=== PATIENT | male | born 1950 | race Caucasian/White ===

== ENCOUNTER 2024-05-30 21:28 | Inpatient (IN) | payer MEDICARE, OTHER, SELFPAY ==
[2024-05-30] VITALS (10 sets, daily range): BP systolic 77–137; BP diastolic 56–75; BMI 21.4
--- NOTE | 2024-05-30 15:21 | ED.GENMED ---
History of Present Illness
<Lacie Parks PA-C - Last Filed: 06/02/24 10:07>
General
Chief Complaint: Abdominal Pain
Source: patient
Exam Limitations: none
Time Seen by Provider: 05/30/24 15:21
Nursing documentation reviewed up to this point in time: agreed with
History of Present Illness
History of Present Illness:
73-year-old male with a past medical history of abdominal aortic aneurysm, A-fib, CHF, presents emergency department today with concerns of abdominal pain for the past 3 days and hypoxia. Patient comes from [facility]. I called [facility]
and they state the patient started complaining that 'I am not feeling well 'starting yesterday. They went to go check on him and noted that his pulse ox was 90% on room air, he was started on 2 L. He has no history of hypoxia or supplemental
oxygen prior. He started having a cough that was dry, they did a chest x-ray which was negative and had covid and flu testing which was negative. Today, he started complaining of lower abdominal pain and burning with urination. He has no nausea
or vomiting. He did note a fever today at the facility. He has no chest pain. He has not had any episodes of hemoptysis or syncope. He does have a known abdominal aneurysm, which is being followed.
Past History
<Lacie Parks PA-C - Last Filed: 06/02/24 10:07>
Past History
ED Past Medical History: Arrthythmia (A. fib), CAD, CHF, Hypercholesterolemia and Other (Upper extremity contractures, BPH, rheumatoid arthritis)
ED Past Surgical History: Cardiac (pacemaker)
Social History
Alcohol: None
Review of Systems
<Lacie Parks PA-C - Last Filed: 06/02/24 10:07>
Review of Systems
All Other Systems: ROS reviewed and negative except as documented in HPI and ROS
Phy Exam
<Lacie Parks PA-C - Last Filed: 06/02/24 10:07>
Physical Exam
Physical Exam:
General: Patient is well appearing and in no acute distress; non-toxic
Skin: Warm and dry, no rashes or lesions
Head: Normocephalic, atraumatic
Eyes: Sclera non-icteric. EOMs intact.
Cardiac: Regular rate and rhythm, no murmurs
Peripheral Vascular: No lower extremity swelling or edema
Pulm: Normal respiratory effort, lungs clear to auscultation bilaterally
Abdomen: Lower abdominal tenderness palpation noted with guarding
Neuro: CN II-XII intact, no focal neurologic deficits.
Psychiatric: Appropriate mood and affect.
Course
<Lacie Parks PA-C - Last Filed: 06/02/24 10:07>
Orders/Labs/Results
Orders:
Orders
05/30/24 Breakfast
Regular
At Your Request: Limited Participation
Does patient need a safe tray?: No
05/30/24 15:58
Acetaminophen [Tylenol] 1,000 mg PO NOW STA
05/30/24 16:05
Complete Blood Count/With Diff Urgent
Comprehensive Metabolic Panel Urgent
Lipase Urgent
05/30/24 16:11
CT Pe/abd/pel W Urgent
Reason For Exam: hypoxia
05/30/24 19:47
Straight Cath As Directed
Frequency: One time now
05/30/24 19:50
COVID-19 Antigen Urgent
Source: Nasal Swab
Lactic Acid Q4H
Comment: CANCEL 2nd LACTIC ACID IF 1st LACTIC ACID IS LESS THAN 2
Urine Culture Reflexed from UA [Urinalysis Reflex To Culture] Urgent
Date Specimen was Collected: 05/30/24
Time Specimen was Collected: 19:47
Influenza A+B Rapid Molecular Urgent
ROSANNE Source: Nasal Swab
Specimen Description:
05/30/24 19:58
Dexamethasone Sod Phosphate [Decadron] 10 mg IV NOW STA
Ipratropium/Albuterol Sulfate [Duoneb] 3 ml INH R NOW STA
05/30/24 20:35
Admit/Transfer Patient As Directed
Co-Sign Provider:
Level of Care: Inpatient admission
Assign to:: Telemetry
Physician / Group: Duane
Diagnosis: Cough, Hypoxemia
Reason for Telemetry: Arrhythmia
Date to Stop Telemetry: 06/02/24
Time to Stop Telemetry: 11:00
Reason for Hospitalization: Cough, Hypoxemia
Expected length of stay greater than two midnights?: Yes
ELOS- Estimated Length of Stay in days: 2
I certify the patient meets the requirements for IP care: Yes
05/30/24 20:36
PRN Pain Medication Management As Directed
May give lesser potent ordered pain med per pt: Yes
preference::
Protocol:: Medication orders for pain may be administered in a
manner that supports deferring to patient preference
when the pt is:
- Requesting an ordered lesser potent pain medication.
Least to most potent pain medications are defined
as: acetaminophen < NSAID < tramadol < opioids
(morphine, oxycodone, hydromorphone).
- Requesting a lesser dose of the same medication IF
ORDERED.
- Requesting a less intrusive route of administration
if both routes are prescribed by the provider (PO <
IV).
05/30/24 20:43
Code Status As Directed
Resuscitation Status: Full Code
05/30/24 22:26
0.9% Sodium Chloride 1000 ml [Nss] 1,000 ml IV 80 mls/hr
Acetaminophen [Tylenol] 650 mg PO Q4HPRN PRN
Albuterol [ProAIR HFA INHALER] 2 puff INH R Q4HPRN PRN
Benzonatate [Tessalon Perles] 200 mg PO TIDPRN PRN
HYDROmorphone [Dilaudid] 0.5 mg IV Q4HPRN PRN
Mirtazapine [Remeron] 7.5 mg PO HS
Ondansetron Injectable [Zofran] 4 mg IV Q6HPRN PRN
Polyethylene Glycol Powder [Miralax] 17 grams PO HS
Tamsulosin [Flomax] 0.4 mg PO HS
05/30/24 22:26
Activity As Directed
Activity Level: Out of Bed- Chair
With Assistance
Bladder Scan As Directed
Follow Bladder Retention/Intermittent Cath Algorithm?: Yes
PRN if no void in __ hours: 6
Frequency: Per Retention Algorithm
If Bladder Scan Result >: 400
then:: Straight cath
EKG with chest pain [ECG as needed] As Directed
ECG as needed for:: Chest Pain
I/O [Intake/ Output] As Directed
Frequency: Per unit guidelines
Precautions As Directed
Type of Precautions: Droplet
Straight Cath As Directed
Frequency: Per Retention Algorithm
Additional Instructions: straight cath as needed per acute urinary retention algorithm for 24 hrs
Additional Instructions: for bladder scan greater than 400 mL
Vital Signs As Directed
Frequency: Per unit guidelines
Weight As Directed
Frequency: Daily
Oxygen Therapy [O2 Therapy] [RESP] Routine
Titrate/Wean O2 to maintain O2 sat greater than (%): 94
Ot Eval And Treat Routine
PT Consult [Pt Eval And Treat] Routine
Activity Level: Ambulate
With Assistance
DX Deep Vein Thrombosis Video Routine
05/31/24 00:00
Ketorolac [Acuvail] 1 drops LEFT EYE Q6H
05/31/24 06:42
Basic Metabolic Panel IN AM
Complete Blood Count/No Diff IN AM
05/31/24 08:00
Albuterol [ProAIR HFA INHALER] 2 puff INH R QID
Aspirin Low Dose EC [Aspir Low (Enteric Coated)] 81 mg PO DAILY
Carbamazepine Chewable [Tegretol Chewable] 100 mg PO BID
Carvedilol [Coreg] 6.25 mg PO BID
Clopidogrel Bisulfate [Plavix] 75 mg PO DAILY
Duloxetine Delayed Release [Cymbalta Delayed Release] 30 mg PO DAILY
Duloxetine Delayed Release [Cymbalta Delayed Release] 60 mg PO DAILY
Ferrous Sulfate [Feosol] 325 mg PO DAILY
Hydroxychloroquine [Plaquenil] 400 mg PO DAILY
Oseltamivir Phosphate [Tamiflu] 75 mg PO BID
Pantoprazole [Protonix] 40 mg PO DAILY
Sennosides [Senokot] 8.6 mg PO BID
05/31/24 18:00
Atorvastatin [Lipitor] 40 mg PO QPM
Enoxaparin Sodium [Lovenox] 40 mg SC QPM
06/02/24 11:00
DC Protocol for Telemetry ONCE
Abnormal Lab Results
05/30/24 05/30/24
16:05 19:50
RBC 3.96 L 10^6/uL
(4.70-6.10)
Hgb 9.6 L g/dL
(13.0-18.0)
Hct 32.6 L %
(39.0-52.0)
MCH 24.2 L pg
(27.0-31.0)
MCHC 29.4 L g/dL
(33.0-37.0)
RDW 21.8 H %
(11.5-14.5)
Absolute Lymphs (auto) 0.3 L 10^3/uL
(1.2-3.4)
Neutrophils % 82.2 H %
(42.2-75.2)
Lymphocytes % 6.5 L %
(20.5-51.1)
Monocytes % 10.3 H %
(1.7-9.3)
Sodium 134 L mmol/L
(135-145)
Carbon Dioxide 32 H mmol/L
(22-30)
Glucose 108 H mg/dl
(70-99)
Calcium 7.9 L mg/dl
(8.4-10.2)
Total Protein 5.7 L g/dl
(6.3-8.2)
Albumin 3.3 L g/dl
(3.5-5.0)
Urine Bilirubin 1+ A
(Negative)
05/30/24 16:05
05/30/24 16:05
Vital Signs
Initial and Last Documented VS:
Initial Vital Signs
Temp Pulse Resp BP Pulse Ox
100.8 F H 82 20 117/65 92
05/30/24 15:17 05/30/24 15:17 05/30/24 15:17 05/30/24 15:17 05/30/24 15:17
Last Documented Vital Signs
Temp Pulse Resp BP Pulse Ox
97.6 F 80 20 147/82 97
06/02/24 07:55 06/02/24 09:48 06/02/24 07:55 06/02/24 09:48 06/02/24 07:55
Kolbylt;Gerhard Jerry DO - Last Filed: 05/30/24 19:57>
Orders/Labs/Results
Orders:
Orders
05/30/24 Breakfast
Regular
At Your Request: Limited Participation
Does patient need a safe tray?: No
05/30/24 15:58
Acetaminophen [Tylenol] 1,000 mg PO NOW STA
05/30/24 16:05
Complete Blood Count/With Diff Urgent
Comprehensive Metabolic Panel Urgent
Lipase Urgent
05/30/24 16:11
CT Pe/abd/pel W Urgent
Reason For Exam: hypoxia
05/30/24 19:47
Straight Cath As Directed
Frequency: One time now
05/30/24 19:50
COVID-19 Antigen Urgent
Source: Nasal Swab
Lactic Acid Q4H
Comment: CANCEL 2nd LACTIC ACID IF 1st LACTIC ACID IS LESS THAN 2
Urine Culture Reflexed from UA [Urinalysis Reflex To Culture] Urgent
Date Specimen was Collected: 05/30/24
Time Specimen was Collected: 19:47
Influenza A+B Rapid Molecular Urgent
ROSANNE Source: Nasal Swab
Specimen Description:
05/30/24 19:58
Dexamethasone Sod Phosphate [Decadron] 10 mg IV NOW STA
Ipratropium/Albuterol Sulfate [Duoneb] 3 ml INH R NOW STA
05/30/24 20:35
Admit/Transfer Patient As Directed
Co-Sign Provider:
Level of Care: Inpatient admission
Assign to:: Telemetry
Physician / Group: Duane
Diagnosis: Cough, Hypoxemia
Reason for Telemetry: Arrhythmia
Date to Stop Telemetry: 06/02/24
Time to Stop Telemetry: 11:00
Reason for Hospitalization: Cough, Hypoxemia
Expected length of stay greater than two midnights?: Yes
ELOS- Estimated Length of Stay in days: 2
I certify the patient meets the requirements for IP care: Yes
05/30/24 20:36
PRN Pain Medication Management As Directed
May give lesser potent ordered pain med per pt: Yes
preference::
Protocol:: Medication orders for pain may be administered in a
manner that supports deferring to patient preference
when the pt is:
- Requesting an ordered lesser potent pain medication.
Least to most potent pain medications are defined
as: acetaminophen < NSAID < tramadol < opioids
(morphine, oxycodone, hydromorphone).
- Requesting a lesser dose of the same medication IF
ORDERED.
- Requesting a less intrusive route of administration
if both routes are prescribed by the provider (PO <
IV).
05/30/24 20:43
Code Status As Directed
Resuscitation Status: Full Code
05/30/24 22:26
0.9% Sodium Chloride 1000 ml [Nss] 1,000 ml IV 80 mls/hr
Acetaminophen [Tylenol] 650 mg PO Q4HPRN PRN
Albuterol [ProAIR HFA INHALER] 2 puff INH R Q4HPRN PRN
Benzonatate [Tessalon Perles] 200 mg PO TIDPRN PRN
HYDROmorphone [Dilaudid] 0.5 mg IV Q4HPRN PRN
Mirtazapine [Remeron] 7.5 mg PO HS
Ondansetron Injectable [Zofran] 4 mg IV Q6HPRN PRN
Polyethylene Glycol Powder [Miralax] 17 grams PO HS
Tamsulosin [Flomax] 0.4 mg PO HS
05/30/24 22:26
Activity As Directed
Activity Level: Out of Bed- Chair
With Assistance
Bladder Scan As Directed
Follow Bladder Retention/Intermittent Cath Algorithm?: Yes
PRN if no void in __ hours: 6
Frequency: Per Retention Algorithm
If Bladder Scan Result >: 400
then:: Straight cath
EKG with chest pain [ECG as needed] As Directed
ECG as needed for:: Chest Pain
I/O [Intake/ Output] As Directed
Frequency: Per unit guidelines
Precautions As Directed
Type of Precautions: Droplet
Straight Cath As Directed
Frequency: Per Retention Algorithm
Additional Instructions: straight cath as needed per acute urinary retention algorithm for 24 hrs
Additional Instructions: for bladder scan greater than 400 mL
Vital Signs As Directed
Frequency: Per unit guidelines
Weight As Directed
Frequency: Daily
Oxygen Therapy [O2 Therapy] [RESP] Routine
Titrate/Wean O2 to maintain O2 sat greater than (%): 94
Ot Eval And Treat Routine
PT Consult [Pt Eval And Treat] Routine
Activity Level: Ambulate
With Assistance
DX Deep Vein Thrombosis Video Routine
05/31/24 00:00
Ketorolac [Acuvail] 1 drops LEFT EYE Q6H
05/31/24 06:42
Basic Metabolic Panel IN AM
Complete Blood Count/No Diff IN AM
05/31/24 08:00
Albuterol [ProAIR HFA INHALER] 2 puff INH R QID
Aspirin Low Dose EC [Aspir Low (Enteric Coated)] 81 mg PO DAILY
Carbamazepine Chewable [Tegretol Chewable] 100 mg PO BID
Carvedilol [Coreg] 6.25 mg PO BID
Clopidogrel Bisulfate [Plavix] 75 mg PO DAILY
Duloxetine Delayed Release [Cymbalta Delayed Release] 30 mg PO DAILY
Duloxetine Delayed Release [Cymbalta Delayed Release] 60 mg PO DAILY
Ferrous Sulfate [Feosol] 325 mg PO DAILY
Hydroxychloroquine [Plaquenil] 400 mg PO DAILY
Oseltamivir Phosphate [Tamiflu] 75 mg PO BID
Pantoprazole [Protonix] 40 mg PO DAILY
Sennosides [Senokot] 8.6 mg PO BID
05/31/24 18:00
Atorvastatin [Lipitor] 40 mg PO QPM
Enoxaparin Sodium [Lovenox] 40 mg SC QPM
06/02/24 11:00
DC Protocol for Telemetry ONCE
Abnormal Lab Results
05/30/24 05/30/24
16:05 19:50
RBC 3.96 L 10^6/uL
(4.70-6.10)
Hgb 9.6 L g/dL
(13.0-18.0)
Hct 32.6 L %
(39.0-52.0)
MCH 24.2 L pg
(27.0-31.0)
MCHC 29.4 L g/dL
(33.0-37.0)
RDW 21.8 H %
(11.5-14.5)
Absolute Lymphs (auto) 0.3 L 10^3/uL
(1.2-3.4)
Neutrophils % 82.2 H %
(42.2-75.2)
Lymphocytes % 6.5 L %
(20.5-51.1)
Monocytes % 10.3 H %
(1.7-9.3)
Sodium 134 L mmol/L
(135-145)
Carbon Dioxide 32 H mmol/L
(22-30)
Glucose 108 H mg/dl
(70-99)
Calcium 7.9 L mg/dl
(8.4-10.2)
Total Protein 5.7 L g/dl
(6.3-8.2)
Albumin 3.3 L g/dl
(3.5-5.0)
Urine Bilirubin 1+ A
(Negative)
05/30/24 16:05
05/30/24 16:05
Vital Signs
Initial and Last Documented VS:
Initial Vital Signs
Temp Pulse Resp BP Pulse Ox
100.8 F H 82 20 117/65 92
05/30/24 15:17 05/30/24 15:17 05/30/24 15:17 05/30/24 15:17 05/30/24 15:17
Last Documented Vital Signs
Temp Pulse Resp BP Pulse Ox
97.6 F 80 20 147/82 97
06/02/24 07:55 06/02/24 09:48 06/02/24 07:55 06/02/24 09:48 06/02/24 07:55
<Lacie Parks PA-C - Last Filed: 06/02/24 10:07>
MDM/Problems Addressed
Differential Diagnosis Includes:
See below
MDM/Problems Addressed:
NUMBER AND COMPLEXITY OF PROBLEMS ADDRESSED AT THE ENCOUNTER
� Chronic conditions affecting care: CHF, anemia, a flutter
� Acute Exacerbation and/or Progression of Chronic Illness:
� Differential Diagnosis includes: UTI, pyelonephritis, pulmonary embolism, acute bronchitis, pneumonia
AMOUNT AND/OR COMPLEXITY OF DATA TO BE REVIEWED AND ANALYZED
� I performed an independent evaluation of and my interpretation is:
EKG: EKG reveals sinus bradycardia with low voltage QRS and prolonged QTc
CT:
Laboratory Studies: No leukocytosis
Other:
� Review of other/old records: Reviewed previous ER physician documentation from, patient seen for fall, patient was discharged, no discharge summaries in [facility] to review
� Clinical information was obtained by an independent historian: Spoke to daughter who provided history regarding course of present illness
� Prescriptions/Medications Considered but not given: n/a
� Further testing considered but not performed:
RISK OF COMPLICATIONS AND/OR MORBIDITY OR MORTALITY OF PATIENT MANAGEMENT
� Social determinants of health affecting care: none
� Discussion with other providers: ER attending
� Escalation of care including admission/observation vs risk of discharge considered:
Will admit for new onset hypoxia. CT of the abdomen negative for acute pathology.
<Lacie Parks PA-C - Last Filed: 06/02/24 10:07>
*Critical Care Note
Total Time (30-74mins, 75-104mins- exclusive of procedures): Not Applicable
ED Attending Note
<Lacie Parks PA-C - Last Filed: 06/02/24 10:07>
-
Portions of this chart may have been created with voice recognition software.� Occasional wrong word or��sound alike� substitutions may have occurred due to the inherent limitations of voice recognition software.
<DO Jorge Conn Last Filed: 05/30/24 19:57>
ED Attending Note
Patient seen and examined by attending physician: Yes
I performed the substantive portion of visit, reviewed & personally made and approve the management plan that is documented in note by myself or VALENCIA.: Yes
ED Attending Note:
I evaluated the patient at bedside. The patient is ill-appearing. He is pale. Despite nasal cannula oxygen he remains hypoxic to 85 to 88% with a good waveform. He does not have a history of COPD but CT suggests emphysematous changes�will add
steroids.
Discharge Plan
Departure
Patient Disposition: Admit
Date of Disposition: 05/30/24
Time of Disposition: 20:00
Presentation/result/management discussed w/ accepting MD/DO: Hospitalist
Patient with high blood pressure during this ER visit?: Yes
Condition: Fair
Discharge Problem:
Acute respiratory failure, Fever
Interventions
Interventions:
*Risk Screen - Suicide Last Done: 05/30/24 23:28
*General Assessment Last Done: 05/30/24 15:17
ED- Fall Risk Assessment Last Done: 05/30/24 15:27
*Nursing Disposition Last Done: 05/30/24 22:30
BC-Nrnrqa-Jhukldswgx Assessment Last Done: 05/30/24 15:27
Discharge Date and Time
Discharge Date/Time: 05/30/24 22:31
[2024-05-30] MEDS: TYLENOL 1000 MG PO (16:05)
[2024-05-30 16:17] LABS: % Basophils 0.6 % (0-2); % Immature Granulocytes 0.4 % (0-0.5); % Lymphocytes 6.5 % (20.5-51.1); % Monocytes 10.3 % (1.7-9.3); % Neutrophils 82.2 % (42.2-75.2); Absolute Lymphocytes 0.3 10^3/uL (1.2-3.4); Absolute Monocytes 0.5 10^3/uL (0.1-0.6); Absolute Neutrophils 4.1 10^3/uL (1.4-6.5); Hematocrit 32.6 % (39.0-52.0); Hemoglobin 9.6 g/dL (13.0-18.0); Mean Corp Hgb Conc. 29.4 g/dL (33.0-37.0); Mean Corpuscular Hgb 24.2 pg (27.0-31.0); Mean Corpuscular Volume 82.3 fL (80.0-94.0); Mean Platelet Volume 9.7 fL (7.4-10.4); Nucleated Red Blood Cells % 0.4 % (-); Platelet Count 132 10^3/uL (130-400); Red Blood Cell Count 3.96 10^6/uL (4.70-6.10); Red Cell Dist. Width 21.8 % (11.5-14.5)
[2024-05-30 16:38] LABS: ALT (SGPT) 15 U/L (0-50); AST (SGOT) 32 U/L (17-59); Albumin 3.3 g/dl (3.5-5.0); Alkaline Phosphatase 93 U/L (38-126); Blood Urea Nitrogen 19 mg/dl (9-20); Calcium 7.9 mg/dl (8.4-10.2); Carbon Dioxide 32 mmol/L (22-30); Chloride 99 mmol/L (98-107); Glucose 108 mg/dl (70-99); Lipase 35 U/L (23-300); Potassium 4.4 mmol/L (3.5-5.1); Sodium 134 mmol/L (135-145); Total Bilirubin 0.3 mg/dl (0.2-1.3); Total Protein 5.7 g/dl (6.3-8.2); eGFR > 60.00
[2024-05-30 20:13] LABS: Urine Albumin Trace (Neg - Trace); Urine Bilirubin 1+ (Negative); Urine Character Clear (Clear); Urine Color Yellow; Urine Glucose Negative (Negative); Urine Ketone Negative (Negative); Urine Leukocyte Negative (Negative); Urine Nitrite Negative (Negative); Urine Occult Blood Negative (Negative); Urine Urobilinogen Negative (Neg - 1+)
[2024-05-30] MEDS: DECADRON 10 MG IV (20:13)
[2024-05-30] MEDS: DUONEB 3 ML INH (20:13)
[2024-05-30 20:14] LABS: Lactic Acid 0.7 mmol/L (0.7-2.0)
[2024-05-30 20:21] LABS: COVID-19 Antigen Negative (Negative)
--- NOTE | 2024-05-30 20:54 | HPS.HSE ---
Family Physician
-
Family Physician: Phillip Estrella
Chief Complaint
-
Cough, Hypoxemia
History of Present Illness
Patient is a 73y M with PMH significant for ASCVD, A-Fib, Rheumatoid Arthritis and R hemiparesis s/p CVA who presents to ED for cough and SOB. History obtained from patient, ED staff and [facility] record. Patient states that he has been coughing for
'about a day'. Not certain how reliable his history is. NH records indicates several days of moist cough. Today noted to be hypoxemic (90% on 3 lpm of supplemental O2) and complaining of L sided abdominal pain. He was sent to ED for further
evaluation and treatment.
At the time of my examination, patient is resting comfortably. He complains of cough. Denies F/C, N/V/D, urinary complaints. He does report tenderness with abdominal exam.
Medical History
Past Medical History
Past Medical History: Reports Other
Additional Past Medical History:
ASCVD (CAD, CVA, PAD, AAA)
Chronic Atrial Fibrillation
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
Chronic Gait Dysfunction / Non-Ambulatory at Baseline
Rheumatoid Arthritis
GERD
Hypertension
CHF - Unknown Type
Gout
AAA s/p Repair
B12 Deficiency
Iron Deficiency Anemia
BPH
Anxiety / Depression
Dementia
Past Surgical History: Reports Other
Additional Past Surgical History:
PPM Placement
AAA Repair / Endograft
Social History
Tobacco: Former Smoker
Alcohol: None
Drug: None
Living: [facility]
Family History
Family History: Not pertinent
Allergies / Home Medications
Allergies reflects when Allergies were last updated in [facility].
Home Medications with original date entered in [facility]
Allergy/Medication List:
Allergies
Allergy/AdvReac Type Severity Reaction Status Date / Time
No Known Allergies Allergy Verified 05/30/24 15:20
Home Medications
acetaminophen 325 mg tablet 650 mg PO Q4HPRN PRN MILD PAIN/FEVER 12/03/20
aspirin 81 mg tablet,delayed release 81 mg PO DAILY 12/03/20
atorvastatin 40 mg tablet 40 mg PO QPM 12/03/20
bisacodyl 10 mg rectal suppository (OneLAX Bisacodyl) 10 mg TN DAILYPRN PRN IF MOM INEFECTIVE IN 24H 12/03/20
clopidogrel 75 mg tablet 75 mg PO DAILY 12/03/20
duloxetine 60 mg capsule,delayed release 60 mg PO DAILY 12/03/20
hydroxychloroquine 200 mg tablet 400 mg PO DAILY 12/03/20
magnesium hydroxide 400 mg/5 mL oral suspension 30 ml PO [id number] PRN NO BM IN 3 DAYS 12/03/20
mirtazapine 7.5 mg tablet 7.5 mg PO HS 12/03/20
nitroglycerin 0.4 mg sublingual tablet 0.4 mg sublingual [id number] PRN CHEST PAIN 12/03/20
ondansetron HCl 4 mg tablet 4 mg PO Q6HPRN PRN nausea 12/03/20
pantoprazole 40 mg tablet,delayed release 40 mg PO DAILY 12/03/20
polyethylene glycol 3350 17 gram oral powder packet 17 grams PO HS 12/03/20
sennosides 8.6 mg tablet (senna) 1 tab PO BID 12/03/20
sodium phosphates 19 gram-7 gram/118 mL enema (Enema) 118 ml RC DAILYPRN PRN IF SUPP INEFFECTIVE AFTR 24H 12/03/20
tamsulosin 0.4 mg capsule 0.4 mg PO HS 12/03/20
aluminum-mag hydroxide-simethicone 200 mg-200 mg-20 mg/5 mL oral susp (Nola-Lanta) 15 ml PO Q8HPRN PRN acid indigestion 05/30/24
amlodipine 5 mg tablet 5 mg PO DAILY 05/30/24
carbamazepine 100 mg chewable tablet 100 mg PO BID 05/30/24
carvedilol 6.25 mg tablet 6.25 mg PO BID 05/30/24
cholecalciferol (vitamin D3) 1,250 mcg (50,000 unit) tablet 1,250 mcg PO MO 05/30/24
cyanocobalamin (vitamin B-12) 500 mcg tablet 500 mcg PO DAILY 05/30/24
duloxetine 30 mg capsule,delayed release sprinkle 30 mg PO DAILY 05/30/24
emollient combination no.119 (Eucerin Advanced Repair topical cream) 1 applic topical BID dry areas 05/30/24
ferrous sulfate 325 mg (65 mg iron) tablet 325 mg PO DAILY 05/30/24
guaifenesin 100 mg/5 mL oral liquid 200 mg PO Q4HPRN PRN cough 05/30/24
ketorolac 0.4 % eye drops 1 drp LEFT EYE Q6H 05/30/24
menthol 4 % topical gel (Biofreeze (menthol)) 1 applic topical BID right shoulder 05/30/24
Review of Systems
-
History Source: Patient
A 12 point ROS was completed and negative except as noted: Yes
Constitutional: Denies Fever or Chills
EENT: Denies Sore Throat
Respiratory: Reports Cough and Trouble Breathing
Cardiac: Denies Chest Pain or Palpitations
Abdomen/GI: Reports Abdominal Pain; Denies Nausea, Vomiting, Diarrhea or Bloody Stools
: Denies Dysuria, Frequency or Flank Pain
Musculoskeletal: Denies Joint Pain or Edema
Neurological: Reports Weakness; Denies Headache
Psych: Denies Depression or Anxiety
Physical Exam
Vital Signs
Vital Signs
Temp Pulse Resp BP Pulse Ox
100.8 F H 76 18 101/56 96
05/30/24 15:17 05/30/24 16:59 05/30/24 16:59 05/30/24 18:18 05/30/24 19:02
Physical Exam
General: Other (73y M in no acute distress.)
HEENT: Other (Dry MM, neck supple.)
Respiratory: Other (Scattered coarse breath sounds throughout that clear with cough. No wheezing.)
Cardiac: S1/S2 and Regular Rhythm; No Murmur
GI: Soft, Non Distended, Normal Bowel Sounds and Other (Mild tenderness L abdomen. Pos bowel sounds. No rebound / guarding.)
Musculoskeletal: No Clubbing, No Cyanosis and No Edema
Neuro: Awake and Alert
Laboratory Results
-
05/30/24 16:05
05/30/24 16:05
Laboratory Results
Lactic Acid 0.7 mmol/L (0.7-2.0) 05/30/24 19:50
Total Bilirubin 0.3 mg/dl (0.2-1.3) 05/30/24 16:05
AST 32 U/L (17-59) 05/30/24 16:05
ALT 15 U/L (0-50) 05/30/24 16:05
Alkaline Phosphatase 93 U/L (38-126) 05/30/24 16:05
Lipase 35 U/L (23-300) 05/30/24 16:05
Impression/Plan
-
A/P: Patient is a 73y M with PMH significant for ASCVD, HTN and R hemiparesis s/p CVA who presents to ED from [place] for evaluation of cough and hypoxemia.
Influenza A Infection
Acute Hypoxemic Respiratory Insufficiency secondary to the above
- Admit for further evaluation and treatment.
- Begin Tamiflu therapy.
- Albuterol MDI ATC and PRN.
- Follow proper precautions.
- Monitor for clinical improvement.
- O2 supplementation as needed and wean as able.
Abdominal Pain
- Unclear etiology - ? related to constipation. [facility] notes report recent complaints of this.
- CT done in the ED with no acute abnormality.
- AAA Endograft normal appearing.
- Two small L sided lung nodules noted which will require further follow-up.
- Continue bowel regimen.
- Follow for any new / worsening symptoms.
- Control of cough symptoms may improve abdominal pain.
ASCVD
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
- Continue current CV med regimen including DAPT, statin, etc.
- Follow for any new complaints.
- Patient notes that he does not ambulate at baseline.
Benign Hypertension
- Hold usual meds acutely with low-normal BP.
- Resume when appropriate.
Chronic Atrial Fibrillation
- Not on chronic OAC - likely secondary to anemia / bleeding.
Chronic Iron Deficiency Anemia
- Hgb improved from recent value in the 7s.
- Continue iron supplementation.
- Follow H&H for any changes.
Rheumatoid Arthritis
- Stable. Continue Plaquenil.
Senile Dementia
Mood Disorder
Anxiety / Depression
- Stable. Continue current med regimen including carbamazepine, mirtazapine, etc.
BPH
- Bladder scan protocol.
- Continue tamsulosin.
DVT Prophylaxis: Lovenox
Code Status: Full
--- NOTE | 2024-05-30 22:30 | TRANSFER ---
pt arrived from ED via stretcher accompanied by ED staff. pt was a pullover from stretcher to bed. pt is not ambulatory at baseline. flu positive, droplet precautions put in place. pt AAOx2, not oriented to time. bed alarm placed. VSS, pulse ox at
100% on 4L nasal cannula. call dash within reach, POC ongoing.
[2024-05-30] MEDS: NSS 1000 IV (23:05)
[2024-05-30] MEDS: MIRALAX 17 GRAMS PO (23:05)
[2024-05-30] MEDS: ACUVAIL 1 DROPS LEFT EYE (23:06)
[2024-05-30] MEDS: TESSALON PERLES 200 MG PO (23:07)
[2024-05-30] MEDS: FLOMAX 0.4 MG PO (23:07)
[2024-05-30] MEDS: REMERON 7.5 MG PO (23:08)
[2024-05-31 03:33] VITALS: BP 134/72
[2024-05-31] MEDS: ACUVAIL 1 DROPS LEFT EYE ×4 (05:24→23:01)
[2024-05-31 05:46] VITALS: BMI 21.6
[2024-05-31] MEDS: ProAIR HFA INHALER 2 PUFF INH ×4 (07:52→19:27)
[2024-05-31 07:58] VITALS: BP 133/72
[2024-05-31 08:27] LABS: Hematocrit 34.3 % (39.0-52.0); Hemoglobin 9.9 g/dL (13.0-18.0); Mean Corp Hgb Conc. 28.9 g/dL (33.0-37.0); Mean Corpuscular Hgb 24.6 pg (27.0-31.0); Mean Corpuscular Volume 85.1 fL (80.0-94.0); Mean Platelet Volume 10.1 fL (7.4-10.4); Platelet Count 137 10^3/uL (130-400); Red Blood Cell Count 4.03 10^6/uL (4.70-6.10); Red Cell Dist. Width 22.2 % (11.5-14.5); White Blood Cell Count 3.4 10^3/uL (4.8-10.8)
[2024-05-31 09:02] LABS: Blood Urea Nitrogen 19 mg/dl (9-20); Calcium 7.7 mg/dl (8.4-10.2); Carbon Dioxide 31 mmol/L (22-30); Chloride 99 mmol/L (98-107); Estimated Creatinine Clearance 81 ml/min; Glucose 108 mg/dl (70-99); Potassium 4.7 mmol/L (3.5-5.1); Sodium 138 mmol/L (135-145); eGFR > 60.00
[2024-05-31] MEDS: CYMBALTA DELAYED RELEASE 30 MG PO (09:06)
[2024-05-31] MEDS: FEOSOL 325 MG PO (09:06)
[2024-05-31] MEDS: PLAQUENIL 400 MG PO (09:06)
[2024-05-31] MEDS: PROTONIX 40 MG PO (09:06)
[2024-05-31] MEDS: PLAVIX 75 MG PO (09:07)
[2024-05-31] MEDS: ASPIR LOW (ENTERIC COATED) 81 MG PO (09:07)
[2024-05-31] MEDS: COREG 6.25 MG PO (09:07)
[2024-05-31] MEDS: SENOKOT 8.6 MG PO ×2 (09:07→20:16)
[2024-05-31] MEDS: CYMBALTA DELAYED RELEASE 60 MG PO (09:08)
[2024-05-31] MEDS: TEGRETOL CHEWABLE 100 MG PO ×2 (09:09→20:16)
[2024-05-31] MEDS: TAMIFLU 75 MG PO ×2 (09:09→20:16)
--- NOTE | 2024-05-31 10:54 | W.PN.HOSP.TC ---
Addendum entered and electronically signed by Jose Manuel Hylton MD 05/31/24 14:20:
Updated daughter Deb over the phone in detail.
Original Note:
Today's Communication/Plan
-
wean o2
tamiflu
speech eval
Assessment / Plan
Assessment / Plan
A/P: Patient is a 73y M with PMH significant for ASCVD, HTN and R hemiparesis s/p CVA who presents to ED from [place] for evaluation of cough and hypoxemia.
Sepsis 2/2 Influenza A Infection-poa
Leukopenia 2/2 sepsis
Acute Hypoxemic Respiratory Insufficiency secondary to the above
Advanced emphysema with bronchiectasia w/mucus plugging.
- Begin Tamiflu therapy.
- Albuterol MDI ATC and PRN.
- Follow proper precautions.
- Monitor for clinical improvement.
- speech eval.
- O2 supplementation as needed and wean as able.
- Pulm eval with emphysema/mucus plugging.
Abdominal Pain -no abd pain this morning.
- Unclear etiology - ? related to constipation. [place] notes report recent complaints of this.
- CT done in the ED with no acute abnormality.
- AAA Endograft normal appearing.
- Two small L sided lung nodules noted which will require further follow-up.
- Continue bowel regimen.
- Follow for any new / worsening symptoms.
- Control of cough symptoms may improve abdominal pain.
ASCVD
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
- Continue current CV med regimen including DAPT, statin, etc.
- Follow for any new complaints.
- Patient notes that he does not ambulate at baseline.
Benign Hypertension
-cont coreg
Chronic Atrial Fibrillation
- Not on chronic OAC - likely secondary to anemia / bleeding. Cont coreg.
Chronic Iron Deficiency Anemia
- Hgb improved from recent value in the 7s.
- Continue iron supplementation.
- Follow H&H for any changes.
- Hgb stable at 9.9
Rheumatoid Arthritis
- Stable. Continue Plaquenil.
Senile Dementia
Mood Disorder
Anxiety / Depression
- Stable. Continue current med regimen including carbamazepine, mirtazapine, etc.
BPH
- Bladder scan protocol.
- Continue tamsulosin.
DVT Prophylaxis: Lovenox
Code Status: Full
Anticipated Discharge: > 48 hours
Subjective/Interval History
-
Date of Service: May 31, 2024
on oxygen
denies abd pain
states of mild cough
Objective Data
-
Labs:
Laboratory Results
05/31/24
06:42
WBC 3.4 L
Hgb 9.9 L
Hct 34.3 L
Plt Count 137
Sodium 138
Potassium 4.7
Chloride 99
Carbon Dioxide 31 H
BUN 19
Creatinine 0.8
Glucose 108 H
Calcium 7.7 L
Vital Signs:
Vital Signs
Temp Pulse Resp BP Pulse Ox
98 F 70 18 133/72 95
05/31/24 07:58 05/31/24 09:07 05/31/24 07:59 05/31/24 09:07 05/31/24 07:59
I&O
05/30/24 05/31/24 06/01/24
06:59 06:59 06:59
Intake Total 1200 / 1200
Balance 1200 / 1200
Physical Exam
-
General: Well Developed, No Apparent Distress and Appears Chronically Ill
HEENT: Normocephalic, Atraumatic, Moist Mucous Membranes and Oxygen
Respiratory: Rhonchi
Cardiac: Regular Rhythm and S1/S2; Negative Murmur, Rub or Gallop
GI: Soft, Nontender, Nondistended and Normal Bowel Sounds; Negative Organomegaly
Rectal: Deferred by Provider
Musculoskeletal: No Clubbing, No Cyanosis and No Edema
Skin: Negative Rash
Neuro: Awake and Nonfocal/Grossly Intact
Data Reviewed
-
Total Time Spent with Patient (in minutes): 55
--- NOTE | 2024-05-31 10:57 | PTOTSP ---
Orders received, chart reviewed. Spoke with RN.
Patient does not mobilize OOB on a regular basis. When he does get OOB to W/C, correction uses a dinorah lift.
Not appropriate for skilled intervention. Will discharge at this time.
--- NOTE | 2024-05-31 11:28 | CON.PUL ---
Consultation
Consultation Request
Date/Time Consultation Requested: 05/31/2024-11:30 AM
Date/Time Consultation Performed: 05/31/2024-11:30 AM
Requesting Provider: Hospitalist
Performing Provider: Dr. Gutierrez
Reason for Consultation: Shortness of breath
Medical History
-
Chief Complaint: Shortness of breath
History of Present Illness:
73-year-old male with underlying COPD, bronchiectasis, CAD, PAD, atrial fibrillation, gait dysfunction who presented with cough and increased shortness of breath in addition to hypoxemia-pulmonary consulted for shortness of breath 05/31/2024.. The
patient denies any shortness of breath at rest, denies any chest pain, pleurisy, chest congestion, productive cough, abdominal pain, reflux, new weakness.
Past Medical History
Past Medical History: None (COPD. Bronchiectasis. CAD. CVA. PAD. AAA. Chronic atrial fibrillation. PPM. Right hemiparesis. Chronic gait dysfunction. Rheumatoid arthritis. GERD. Hypertension. Gout. AAA repair. BPH. Anxiety. Dementia.)
Social History
Tobacco: Former Smoker
Alcohol: None
Drug: None
Living: Prison
Occupational Exposures: No known asbestos exposure
Environmental Exposures: No known tuberculosis exposure
Family History
Family History: Reviewed & Not Pertinent
Allergies / Home Medications
Allergies
Allergy/AdvReac Type Severity Reaction Status Date / Time
No Known Allergies Allergy Verified 05/30/24 15:20
Home Medications
�Medication �Instructions �Recorded �Confirmed �Last Taken �Type
acetaminophen 325 mg tablet 650 mg PO Q4HPRN PRN MILD 12/03/20 05/30/24 Unknown History
PAIN/FEVER
aspirin 81 mg tablet,delayed 81 mg PO DAILY Blood Clot 12/03/20 05/30/24 Unknown History
release Prevention/Tx
atorvastatin 40 mg tablet 40 mg PO QPM High Cholesterol 12/03/20 05/30/24 Unknown History
bisacodyl 10 mg rectal suppository 10 mg NC DAILYPRN PRN IF MOM 12/03/20 05/30/24 Unknown History
(OneLAX Bisacodyl) INEFECTIVE IN 24H
clopidogrel 75 mg tablet 75 mg PO DAILY 12/03/20 05/30/24 Unknown History
duloxetine 60 mg capsule,delayed 60 mg PO DAILY Mental 12/03/20 05/30/24 Unknown History
release Health/Anxiety
hydroxychloroquine 200 mg tablet 400 mg PO DAILY RHEUM. ARTHRITIS 12/03/20 05/30/24 Unknown History
magnesium hydroxide 400 mg/5 mL 30 ml PO [id number] PRN NO BM IN 3 12/03/20 05/30/24 Unknown History
oral suspension DAYS
mirtazapine 7.5 mg tablet 7.5 mg PO HS Mental Health/Anxiety 12/03/20 05/30/24 Unknown History
nitroglycerin 0.4 mg sublingual 0.4 mg sublingual [id number] PRN 12/03/20 05/30/24 Unknown History
tablet CHEST PAIN
ondansetron HCl 4 mg tablet 4 mg PO Q6HPRN PRN nausea 12/03/20 05/30/24 Unknown History
pantoprazole 40 mg tablet,delayed 40 mg PO DAILY Gastrointestinal 12/03/20 05/30/24 Unknown History
release Issue
polyethylene glycol 3350 17 gram 17 grams PO HS Constipation 12/03/20 05/30/24 Unknown History
oral powder packet
sennosides 8.6 mg tablet (senna) 1 tab PO BID Constipation 12/03/20 05/30/24 Unknown History
sodium phosphates 19 gram-7 118 ml RC DAILYPRN PRN IF SUPP 12/03/20 05/30/24 Unknown History
gram/118 mL enema (Enema) INEFFECTIVE AFTR 24H
tamsulosin 0.4 mg capsule 0.4 mg PO HS Urinary Issue 12/03/20 05/30/24 Unknown History
aluminum-mag hydroxide-simethicone 15 ml PO Q8HPRN PRN acid 05/30/24 05/30/24 Unknown History
200 mg-200 mg-20 mg/5 mL oral susp indigestion
(Nola-Lanta)
amlodipine 5 mg tablet 5 mg PO DAILY Blood Pressure 05/30/24 05/30/24 Unknown History
carbamazepine 100 mg chewable 100 mg PO BID Mental Health/Anxiety 05/30/24 05/30/24 Unknown History
tablet
carvedilol 6.25 mg tablet 6.25 mg PO BID Heart 05/30/24 05/30/24 Unknown History
Disease/Condition
cholecalciferol (vitamin D3) 1,250 1,250 mcg PO MO Supplement 05/30/24 05/30/24 Unknown History
mcg (50,000 unit) tablet
cyanocobalamin (vitamin B-12) 500 500 mcg PO DAILY Supplement 05/30/24 05/30/24 Unknown History
mcg tablet
duloxetine 30 mg capsule,delayed 30 mg PO DAILY 05/30/24 05/30/24 Unknown History
release sprinkle
emollient combination no.119 1 applic topical BID dry areas 05/30/24 05/30/24 Unknown History
(Eucerin Advanced Repair topical
cream)
ferrous sulfate 325 mg (65 mg 325 mg PO DAILY Supplement 05/30/24 05/30/24 Unknown History
iron) tablet
guaifenesin 100 mg/5 mL oral liquid 200 mg PO Q4HPRN PRN cough 05/30/24 05/30/24 Unknown History
ketorolac 0.4 % eye drops 1 drp LEFT EYE Q6H Eye Condition 05/30/24 05/30/24 Unknown History
menthol 4 % topical gel (Biofreeze 1 applic topical BID right shoulder 05/30/24 05/30/24 Unknown History
(menthol))
Review of Systems
-
Unable to Obtain full review of systems at this time due to: Other (Per HPI)
Vitals / Labs / Diagnostic Testing
Vital Signs
Temp Pulse Resp BP Pulse Ox
98 F 70 18 133/72 95
05/31/24 07:58 05/31/24 09:07 05/31/24 07:59 05/31/24 09:07 05/31/24 07:59
Lab Data
05/31/24 06:42
05/31/24 06:42
Microbiology
05/30/24 19:50 Nasal Swab Influenza Types A & B (CARMELA) - Final
Influenza A Positive, NAAT
Diagnostic Testing:
Physical Exam
-
Exam:
Well-nourished and well-developed in no apparent distress
HEENT-atraumatic, normocephalic
Neck-supple, no JVD, no bruit
Heart-regular rate and rhythm-no murmurs, rubs or gallops
Chest with diminished breath sounds, crackles, prolonged expiratory time, expiratory rhonchi
Back without tenderness
Abdomen-soft, nontender, nondistended, no hepatosplenomegaly
Extremities-no cyanosis, clubbing, edema and good peripheral pulses
Integument-intact, no rashes, lesions or ecchymosis
Neurology-alert, right hemiparesis
Assessment
-
73-year-old male with underlying COPD, bronchiectasis, CAD, PAD, atrial fibrillation, gait dysfunction who presented with cough and increased shortness of breath in addition to hypoxemia-pulmonary consulted for shortness of breath 05/31/2024.
Influenza A
COPD with acute exacerbation
Bronchiectasis with mucous plugging
Abdominal pain
Leukopenia
Lfrcmd-tupnvjudtd-xnzmawkimi 9.6
Mild hyperglycemia
Conditions present prior to admission:
COPD.
Bronchiectasis.
CAD.
CVA.
PAD.
AAA.
Chronic atrial fibrillation.
PPM.
Right hemiparesis.
Chronic gait dysfunction.
Rheumatoid arthritis.
GERD.
Hypertension.
Gout.
AAA repair.
BPH.
Anxiety.
Dementia.
Plan
CT chest personally reviewed and reveals severe advanced emphysematous changes as well as some bronchiectasis and mucous plugging
Supplemental oxygen as needed.
Aspiration precautions.
Speech therapy evaluation
Incentive spirometry..
Nebulizers as needed-currently not bronchospastic.
Mucus clearing devices.
Considering vest therapy
Observe off steroids
Check cultures.
Influenza a positive
Isolation/ droplet precautions
Tamiflu..
Monitor leukopenia..
Observe off antibiotics
Monitor hemoglobin.
Transfuse if needed.
Monitor blood sugar.
Insulin supplementation as needed.
DVT prophylaxis-On Lovenox excellent GI prophylaxis-on pantoprazole.
Nutrition
Early mobilization/physical therapy.
At time of discharge consider discharging on standing inhaler such as Trelogy or Breztri
Diagnostic data:
CT chest abdomen and pelvis 05/30/2024-no evidence for pulm embolism, left upper lobe pulmonary nodule measuring 6.8 mm and 6 mm, advanced emphysematous changes,, mucous plugging and bronchiectasis noted, cholelithiasis, lower pole calculus
measuring 7 mm in the left kidney
Data Reviewed
-
EKG: Report reviewed by me
CT Scan: Image personally visualized and interpreted and Report reviewed by me
Medical Tests (Nuc Med, Echo etc): Report reviewed by me
Labs: Labs reviewed by me
Old Records: Reviewed
Total Time Spent with Patient (in minutes): 65
[2024-05-31] MEDS: NSS IV (11:29)
[2024-05-31 12:00] VITALS: BP 130/73
--- NOTE | 2024-05-31 14:15 | PTOTSP ---
ST Acute Care Evaluation
Pt currently presents with clinical signs consistent with mild oropharyngeal dysphagia characterized by prolonged mastication and bolus formation as well as coughing with ingestion of solids. Pt is at an increased risk for aspiration given his
impulsivity with ingestion rate and bolus size, increased respiratory demands, reduced endurance, reduced insight to current deficits, residual R side weakness from previous CVA, and dependency on others for assistance with feedings.
Recommendations:
- DOWNGRADE diet to SOFT BITE SIZED SOLIDS and continue with THIN LIQUIDS and meds with water as tolerated. RN to check for oral clearance with meds, given 's report of pt selectively bolus holding meds.
- Aspiration precautions: HOB upright for all PO intake; assistance with meals; small bites/sips; slow intake rate; alternate bites/sips.
- LOOM OVERHAULER to f/u re: diet tolerance, to determine if pt would benefit from an instrumental swallow study, and to determine if pt is a candidate for a diet upgrade.
[2024-05-31 15:36] VITALS: BP 107/58
--- NOTE | 2024-05-31 16:35 | CM ---
CM contacted [facility] for update on pt's level of function and bed hold status. I spoke with Lizbeth who provided the following information:
West is a half-way resident at [facility] and has a 15 day bedhold. He is primarily w/c bound; needs assist for transfers. He is able to feed himself.
Plan: CM to follow for pt's return to [facility] when medically stable.
[2024-05-31] MEDS: LIPITOR 40 MG PO (18:11)
[2024-05-31] MEDS: LOVENOX 40 MG SC (18:11)
[2024-05-31 19:51] VITALS: BP 98/53
[2024-05-31] MEDS: MUCINEX 1200 MG PO (20:16)
[2024-05-31] MEDS: FLOMAX 0.4 MG PO (20:16)
[2024-05-31] MEDS: COREG PO (20:16)
[2024-05-31] MEDS: MIRALAX 17 GRAMS PO (22:57)
[2024-05-31] MEDS: REMERON 7.5 MG PO (22:57)
[2024-05-31 23:30] VITALS: BP 121/72
[2024-06-01 03:45] VITALS: BP 134/70
[2024-06-01 04:59] VITALS: BMI 21.6
[2024-06-01] MEDS: ACUVAIL 1 DROPS LEFT EYE ×4 (06:11→23:55)
[2024-06-01] MEDS: ProAIR HFA INHALER 2 PUFF INH ×4 (07:15→19:41)
[2024-06-01 08:08] VITALS: BP 112/69
[2024-06-01] MEDS: PLAQUENIL 400 MG PO (09:48)
[2024-06-01] MEDS: MUCINEX 1200 MG PO ×2 (09:48→20:28)
[2024-06-01] MEDS: PROTONIX 40 MG PO (09:48)
[2024-06-01] MEDS: COREG 6.25 MG PO ×2 (09:49→20:28)
[2024-06-01] MEDS: CYMBALTA DELAYED RELEASE 30 MG PO (09:49)
[2024-06-01] MEDS: ASPIR LOW (ENTERIC COATED) 81 MG PO (09:49)
[2024-06-01] MEDS: TEGRETOL CHEWABLE 100 MG PO ×2 (09:50→20:28)
[2024-06-01] MEDS: FEOSOL 325 MG PO (09:50)
[2024-06-01] MEDS: PLAVIX 75 MG PO (09:50)
[2024-06-01] MEDS: SENOKOT 8.6 MG PO ×2 (09:50→20:28)
[2024-06-01] MEDS: TAMIFLU 75 MG PO ×2 (09:50→20:28)
[2024-06-01] MEDS: CYMBALTA DELAYED RELEASE 60 MG PO (09:50)
[2024-06-01] MEDS: TYLENOL 650 MG PO (09:52)
[2024-06-01] MEDS: FLUSH (NSS) 1 FLUSH IV ×2 (09:53→09:54)
--- NOTE | 2024-06-01 09:57 | W.PN.PUL.V3 ---
Today's Communication / Plan
-
Tamiflu
Observe off steroids
Observe off antibiotics
Wean FiO2
Mucus clearing devices
Assessment
-
73-year-old male with underlying COPD, bronchiectasis, CAD, PAD, atrial fibrillation, gait dysfunction who presented with cough and increased shortness of breath in addition to hypoxemia-pulmonary consulted for shortness of breath 05/31/2024.
Influenza A
COPD with acute exacerbation
Bronchiectasis with mucous plugging
Abdominal pain
Leukopenia
Haodiv-gikzbvsjng-ymoomcolfp 9.6
Mild hyperglycemia
Conditions present prior to admission:
COPD.
Bronchiectasis.
CAD.
CVA.
PAD.
AAA.
Chronic atrial fibrillation.
PPM.
Right hemiparesis.
Chronic gait dysfunction.
Rheumatoid arthritis.
GERD.
Hypertension.
Gout.
AAA repair.
BPH.
Anxiety.
Dementia.
Plan
CT chest personally reviewed and reveals severe advanced emphysematous changes as well as some bronchiectasis and mucous plugging
Supplemental oxygen as needed-currently 5 L - 97% saturation-wean
Aspiration precautions.
Speech therapy evaluation ongoing-correspondence reviewed-continue level 6-soft/bite sized and thin liquids
Incentive spirometry..
Nebulizers as needed-currently not bronchospastic.
Mucus clearing devices.
Considering vest therapy if unable to produce or mobilize secretions
Observe off steroids
Cultures reviewed
Unable to produce sputum
Influenza a positive
Isolation/ droplet precautions
Tamiflu per protocol
Monitor leukopenia..
Continue to observe off antibiotics
Monitor hemoglobin.
Transfuse if needed.
Monitor blood sugar.
Insulin supplementation as needed.
DVT prophylaxis-On Lovenox excellent GI prophylaxis-on pantoprazole.
Nutrition
Early mobilization/physical therapy.
At time of discharge consider discharging on standing inhaler such as Trelogy or Breztri
Diagnostic data:
CT chest abdomen and pelvis 05/30/2024-no evidence for pulm embolism, left upper lobe pulmonary nodule measuring 6.8 mm and 6 mm, advanced emphysematous changes,, mucous plugging and bronchiectasis noted, cholelithiasis, lower pole calculus
measuring 7 mm in the left kidney
Subjective Data
-
Date of Service:
Date of Service: June 01, 2024
Chief Complaint: Pulmonary Follow Up and Dyspnea Follow Up
Subjective:
Denies any worsening shortness of breath, productive cough, no chest pain or abdominal pain
Review of Systems
General: Other (Per HPI)
Objective Data
Data Reviewed
Vital Signs / I&O:
Vital Signs
Temp Pulse Resp BP Pulse Ox
99.4 F 84 20 112/69 93
06/01/24 08:08 06/01/24 09:49 06/01/24 08:08 06/01/24 09:49 06/01/24 08:08
Intake and Output
05/31/24 06/01/24 06/02/24
06:59 06:59 06:59
Intake Total 1200 / 1200 1300 / 1300
Balance 1200 / 1200 1300 / 1300
SaO2: 93
Nasal Cannula flow liters per minute: 4
Physical Exam
General: Respiratory Distress (n) and Comfortable
HEENT: Normocephalic, Anicteric and Moist Mucous Membranes
Cardiovascular: Regular Rhythm and Murmur
Respiratory: Clear (Diminished breath sounds, prolonged expiratory time), Wheeze (Forced wheezes), Crackles (Few basilar), Non-Labored Respirations, Accessory Resp Muscle Use (n) and Stridor (n)
GI: Soft, Non Distended and Non Tender
Neurology: Awake, Alert and No Motor Deficits
Skin: Warm, Good Color, Cyanosis (n), Jaundice (n) and Rash (n)
Labs/Micro/Reports
Lab Data
05/31/24 06:42
05/31/24 06:42
Microbiology
05/30/24 19:50 Nasal Swab Influenza Types A & B (CARMELA) - Final
Influenza A Positive, NAAT
[2024-06-01 11:27] VITALS: BP 111/66
--- NOTE | 2024-06-01 11:57 | W.PN.HOSP.TC ---
Today's Communication/Plan
-
Continue with bronchodilators
Continue with Tamiflu
Encourage p.o. intake
Assessment / Plan
Assessment / Plan
A/P: Patient is a 73y M with PMH significant for ASCVD, HTN and R hemiparesis s/p CVA who presents to ED from [place] for evaluation of cough and hypoxemia.
Sepsis 2/2 Influenza A Infection-poa
Leukopenia 2/2 sepsis
Acute Hypoxemic Respiratory Insufficiency secondary to the above
Advanced emphysema with bronchiectasia w/mucus plugging.
- Began Tamiflu therapy.
- Albuterol MDI ATC and PRN. Mucus clearing therapy. Flutter valve.
- Follow proper precautions.
- Monitor for clinical improvement.
- speech eval.
- O2 supplementation as needed and wean as able.
- Pulm eval with emphysema/mucus plugging. Monitor off steroids.
Abdominal Pain -resolved.
- Unclear etiology - ? related to constipation. [place] notes report recent complaints of this.
- CT done in the ED with no acute abnormality.
- AAA Endograft normal appearing.
- Two small L sided lung nodules noted which will require further follow-up.
- Continue bowel regimen.
- Follow for any new / worsening symptoms.
- Control of cough symptoms may improve abdominal pain.
ASCVD
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
- Continue current CV med regimen including DAPT, statin, etc.
- Follow for any new complaints.
- Patient notes that he does not ambulate at baseline.
Benign Hypertension
-cont coreg
Chronic Atrial Fibrillation
- Not on chronic OAC - likely secondary to anemia / bleeding. Cont coreg.
Chronic Iron Deficiency Anemia
- Hgb improved from recent value in the 7s.
- Continue iron supplementation.
- Follow H&H for any changes.
- Hgb stable at 9.9
Rheumatoid Arthritis
- Stable. Continue Plaquenil.
Senile Dementia
Mood Disorder
Anxiety / Depression
- Stable. Continue current med regimen including carbamazepine, mirtazapine, etc.
BPH
- Bladder scan protocol.
- Continue tamsulosin.
DVT Prophylaxis: Lovenox
Code Status: Full
Updated daughter over the phone Deb in details.
Anticipated Discharge: Within 24 hours
Subjective/Interval History
-
Date of Service: June 01, 2024
remains on oxygen
states of body ache
trying to increase po intake
Objective Data
-
Vital Signs:
Vital Signs
Temp Pulse Resp BP Pulse Ox
98.6 F 80 20 111/66 94
06/01/24 11:27 06/01/24 11:27 06/01/24 11:27 06/01/24 11:27 06/01/24 11:27
I&O
05/31/24 06/01/24 06/02/24
06:59 06:59 06:59
Intake Total 1200 / 1200 1300 / 1300
Balance 1200 / 1200 1300 / 1300
Physical Exam
-
General: Well Developed, No Apparent Distress and Appears Chronically Ill
HEENT: Normocephalic, Atraumatic, Moist Mucous Membranes and Oxygen
Respiratory: Rhonchi (improving )
Cardiac: Regular Rhythm and S1/S2; Negative Murmur, Rub or Gallop
GI: Soft, Nontender, Nondistended and Normal Bowel Sounds; Negative Organomegaly
Rectal: Deferred by Provider
Musculoskeletal: No Clubbing, No Cyanosis and No Edema
Skin: Negative Rash
Neuro: Awake and Nonfocal/Grossly Intact
--- NOTE | 2024-06-01 12:13 | PN.CDI ---
CDI
- -
CDI:
Physician Documentation Request
Admit Date: 05/30/24 21:28
Dear Doctor Concetta,
Clinical Indicators:
Patient admitted with sepsis due to influenza.
06/01 PN, 'Acute Hypoxemic Respiratory Insufficiency'
02 requirements:
05/31/24
19:51 05/31/24
20:50 05/31/24
23:30
Nasal Cannula flow liters per minute 5 5 5
06/01/24
03:45
Nasal Cannula flow liters per minute 5
Please clarify which of the following accurately represents the patient's respiratory status:
Acute hypoxic respiratory failure
Acute Hypoxemic Respiratory Insufficiency only
Other
Additional information for Respiratory Failure:
Recognized criteria for Respiratory Failure (Source: [facility] Hospitalist Apr 2013)
ABGs: (1 or more) Symptoms Please indicate type if known
1. p)2 <60 or RA SPO2 <91% on RA 1. Tachypnea, SOB, dyspnea Hypoxic
2. pCO2 50 and pH <7.35 2. Use of accessory muscles Hypercapnic
3. pO2 decrease of pCO2 increase by 3. Pallor or cyanosis Hypoxic and Hypercapnic
10 mmHg from baseline if known 4. Anxiety or restlessness Unable to determine
5. Unable to speak in full sentences
Supplemental O2 of > 40% (5LPM) Intubation is not required
Use of terms such as suspected, likely, concern for, or probable (associated with a specific diagnosis that is being evaluated, monitored, or treated as if it exists) are acceptable and can be coded in the inpatient setting, when documented at the
time of discharge.
Thank you,
Cherri Rose RN BSN
CDI Specialist
available via tiger text
Please use your independent medical judgment in providing your response.
[2024-06-01 15:29] VITALS: BP 101/56
--- NOTE | 2024-06-01 16:33 | CM ---
indicated pt ready for dc to [facility] tomorrow.
[facility] is flu positive and on oxygen.
Spoke with pt he is in agreement with return to correction [facility].
He is on 2or 5 Tamaflu Mari aware.
Will need ambulance transport.
[facility]
report [phone]
fax [phone]
PLAn Return to [facility]
[2024-06-01] MEDS: LIPITOR 40 MG PO (17:26)
[2024-06-01] MEDS: LOVENOX 40 MG SC (17:27)
[2024-06-01 19:59] VITALS: BP 118/73
[2024-06-01] MEDS: MIRALAX PO (20:28)
[2024-06-01] MEDS: FLOMAX 0.4 MG PO (20:28)
[2024-06-01] MEDS: REMERON 7.5 MG PO (23:00)
[2024-06-01 23:30] VITALS: BP 109/59
[2024-06-02 03:22] VITALS: BP 150/88
[2024-06-02] MEDS: ProAIR HFA INHALER 2 PUFF INH ×3 (03:34→11:15)
[2024-06-02] MEDS: ACUVAIL 1 DROPS LEFT EYE ×2 (05:27→18:42)
[2024-06-02 06:00] VITALS: BMI 21.7
[2024-06-02 07:55] VITALS: BP 147/82
--- NOTE | 2024-06-02 09:01 | W.PN.PUL3 ---
Today's Communication / Plan
-
Tamiflu
Observe off steroids
Observe off antibiotics
Monitor on room air
Mucus clearing devices
Consider starting steroid-containing inhaler if cough develops
Pulmonary service will continue to follow along
Assessment
-
73-year-old male with underlying COPD, bronchiectasis, CAD, PAD, atrial fibrillation, gait dysfunction who presented with cough and increased shortness of breath in addition to hypoxemia-pulmonary consulted for shortness of breath 05/31/2024.
Impression:
Influenza A
COPD/severe centrilobular emphysema with acute exacerbation
RLL focal bronchiectasis with mucous plugging
Abdominal pain
Leukopenia
Gvkkyp-fdkjenvvjo-ldelqmhyiq 9.6
Mild hyperglycemia
Conditions present prior to admission:
COPD.
Bronchiectasis.
CAD.
CVA.
PAD.
AAA.
Chronic atrial fibrillation.
PPM.
Right hemiparesis.
Chronic gait dysfunction.
Rheumatoid arthritis.
GERD.
Hypertension.
Gout.
AAA repair.
BPH.
Anxiety.
Dementia.
Plan
CT chest personally reviewed and reveals severe advanced emphysematous changes as well as some bronchiectasis (mainly in RLL) with mucous plugging
Supplemental oxygen as needed-previously on 5 L, now on room air as of 06/02/2024 and saturating well at 96%
Aspiration precautions
Speech therapy evaluation ongoing-correspondence reviewed-continue level 6-soft/bite sized and thin liquids
Incentive spirometry encouraged q1hr while awake
Nebulized albuterol QID
Mucus clearing devices
Considering vest therapy if unable to produce or mobilize secretions
Observe off steroids
If cough develops then would start LABA/ICS with symbicort vs Advair
Cultures reviewed
Unable to produce sputum
Influenza A positive
Isolation/ droplet precautions
Tamiflu per protocol x 5 days
Trend WBC
Continue to observe off antibiotics
Monitor hemoglobin.
Transfuse if needed to keep Hb>7g/dL
Monitor blood sugar with goal BG>100 and <180
Insulin supplementation as needed
DVT prophylaxis-On Lovenox
GI prophylaxis-on pantoprazole (home med)
Early mobilization/physical therapy.
At time of discharge consider discharging on standing inhaler such as Symbicort or Breo, and if more symptomatic then would dc on trelegy vs breztri
Pulmonary service will continue to follow along.
Diagnostic data:
CT chest abdomen and pelvis 05/30/2024-no evidence for pulm embolism, left upper lobe pulmonary nodule measuring 6.8 mm and 6 mm, advanced emphysematous changes,, mucous plugging and bronchiectasis noted, cholelithiasis, lower pole calculus
measuring 7 mm in the left kidney
Total time spent today was 36 minutes for this encounter. Time includes reviewing laboratory test/imaging results, reviewing pertinent medical records, obtaining and reviewing medical history, performing an appropriate exam, ordering medications,
tests and procedures. Time also includes documentation of this encounter, coordinating patient care and communicating with other healthcare professionals. Total time does not include separately billed tests performed on this date of service.
Subjective Data
-
Date of Service:
Date of Service: June 02, 2024
Chief Complaint: Pulmonary Follow Up and Dyspnea Follow Up
Subjective:
Patient seen and evaluated today at bedside. He denies shortness of breath or chest pain. Currently on room air breathing comfortably, saturating 96%.
Review of Systems
General: Other (Negative unless mentioned above)
Objective Data
Data Reviewed
Vital Signs / I&O / Oxygen:
Vital Signs
Temp Pulse Resp BP Pulse Ox
97.6 F 80 20 147/82 97
06/02/24 07:55 06/02/24 09:48 06/02/24 07:55 06/02/24 09:48 12/21/24 07:55
Intake and Output
06/01/24 06/02/24 06/03/24
06:59 06:59 06:59
Intake Total 1300 / 1300 1120 / 1120
Balance 1300 / 1300 1120 / 1120
SaO2 97
Nasal Cannula flow liters per 4
minute
Physical Exam
General: Respiratory Distress (n) and Comfortable
HEENT: Normocephalic and Anicteric
Cardiovascular: S1-S2 and Peripheral Edema (negative)
Respiratory: Wheeze (negative), Crackles (Few basilar), Rhonchi (negative), Non-Labored Respirations, Accessory Resp Muscle Use (n), Stridor (n) and Other (Coarse breath sounds heard bilaterally)
GI: Soft, Non Distended, Non Tender and Normal Bowel Sounds
Neurology: Awake, Alert and Tremors (negative)
Skin: Warm, Dry, Cyanosis (n), Jaundice (n) and Rash (n)
Labs/Micro/Reports
Lab Data
05/31/24 06:42
05/31/24 06:42
Microbiology
05/30/24 19:50 Nasal Swab Influenza Types A & B (CARMELA) - Final
Influenza A Positive, NAAT
[2024-06-02] MEDS: PLAQUENIL 400 MG PO (09:47)
[2024-06-02] MEDS: MUCINEX 1200 MG PO ×2 (09:47→21:38)
[2024-06-02] MEDS: PROTONIX 40 MG PO (09:47)
[2024-06-02] MEDS: PLAVIX 75 MG PO (09:48)
[2024-06-02] MEDS: TAMIFLU 75 MG PO ×2 (09:48→21:38)
[2024-06-02] MEDS: ASPIR LOW (ENTERIC COATED) 81 MG PO (09:48)
[2024-06-02] MEDS: TEGRETOL CHEWABLE 100 MG PO ×2 (09:48→21:38)
[2024-06-02] MEDS: CYMBALTA DELAYED RELEASE 60 MG PO (09:48)
[2024-06-02] MEDS: COREG 6.25 MG PO ×2 (09:48→21:38)
[2024-06-02] MEDS: SENOKOT 8.6 MG PO ×2 (09:48→21:38)
[2024-06-02] MEDS: CYMBALTA DELAYED RELEASE 30 MG PO (09:48)
[2024-06-02] MEDS: FEOSOL 325 MG PO (09:48)
[2024-06-02 11:38] VITALS: BP 132/70
--- NOTE | 2024-06-02 13:02 | W.PN.HOSP.TC ---
Today's Communication/Plan
-
Change to nebulizing treatment
Check labs
Encourage p.o. intake
Continue with Tamiflu
Assessment / Plan
Assessment / Plan
A/P: Patient is a 73y M with PMH significant for ASCVD, HTN and R hemiparesis s/p CVA who presents to ED from [place] for evaluation of cough and hypoxemia.
Sepsis 2/2 Influenza A Infection-poa
Leukopenia 2/2 sepsis
Acute Hypoxemic Respiratory failure secondary to the above downtrending oxygenation 3 L
Advanced emphysema with bronchiectasia w/mucus plugging.
- Began Tamiflu therapy.
- Albuterol to nebulizing treatment. Mucus clearing therapy. Flutter valve.
- Follow proper precautions.
- Monitor for clinical improvement.
- speech eval.
- O2 supplementation as needed and wean as able.
- Pulm eval with emphysema/mucus plugging. Monitor off steroids.
Abdominal Pain -resolved.
- Unclear etiology - ? related to constipation. [place] notes report recent complaints of this.
- CT done in the ED with no acute abnormality.
- AAA Endograft normal appearing.
- Two small L sided lung nodules noted which will require further follow-up.
- Continue bowel regimen.
- Follow for any new / worsening symptoms.
- Control of cough symptoms may improve abdominal pain.
ASCVD
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
- Continue current CV med regimen including DAPT, statin, etc.
- Follow for any new complaints.
- Patient notes that he does not ambulate at baseline.
Benign Hypertension
-cont coreg
Chronic Atrial Fibrillation
- Not on chronic OAC - likely secondary to anemia / bleeding. Cont coreg.
Chronic Iron Deficiency Anemia
- Hgb improved from recent value in the 7s.
- Continue iron supplementation.
- Follow H&H for any changes.
- Hgb stable at 9.9
Rheumatoid Arthritis
- Stable. Continue Plaquenil.
Senile Dementia
Mood Disorder
Anxiety / Depression
- Stable. Continue current med regimen including carbamazepine, mirtazapine, etc.
BPH
- Bladder scan protocol.
- Continue tamsulosin.
DVT Prophylaxis: Lovenox
Code Status: Full
Called daughter to update. No response. Left voicemail.
Anticipated Discharge: 24 - 48 hours
Subjective/Interval History
-
Date of Service: June 02, 2024
on oxygen
trying to eat more
Objective Data
-
Vital Signs:
Vital Signs
Temp Pulse Resp BP Pulse Ox
97.7 F 77 16 132/70 95
06/02/24 11:38 06/02/24 11:38 06/02/24 11:38 06/02/24 11:38 06/02/24 11:38
I&O
06/01/24 06/02/24 06/03/24
06:59 06:59 06:59
Intake Total 1300 / 1300 1120 / 1120
Balance 1300 / 1300 1120 / 1120
Physical Exam
-
General: Well Developed, No Apparent Distress and Appears Chronically Ill
HEENT: Normocephalic, Atraumatic, Moist Mucous Membranes and Oxygen
Respiratory: Wheezes (mild-improved) and Rhonchi
Cardiac: Regular Rhythm and S1/S2; Negative Murmur, Rub or Gallop
GI: Soft, Nontender, Nondistended and Normal Bowel Sounds; Negative Organomegaly
Rectal: Deferred by Provider
Musculoskeletal: No Clubbing, No Cyanosis, No Edema and Other (upper extremitis contractures )
Skin: Negative Rash
Neuro: Awake and Nonfocal/Grossly Intact
[2024-06-02] MEDS: ACUVAIL LEFT EYE (13:14)
[2024-06-02] MEDS: VENTOLIN NEBULES 1.25 MG INH ×2 (15:17→19:35)
[2024-06-02 15:30] VITALS: BP 111/68
[2024-06-02] MEDS: LIPITOR 40 MG PO (18:42)
[2024-06-02] MEDS: LOVENOX 40 MG SC (18:42)
[2024-06-02 19:31] VITALS: BP 141/74
[2024-06-02] MEDS: REMERON 7.5 MG PO (21:38)
[2024-06-02] MEDS: MIRALAX 17 GRAMS PO (21:38)
[2024-06-02] MEDS: FLOMAX 0.4 MG PO (21:38)
[2024-06-02 23:58] VITALS: BP 115/63
[2024-06-03] MEDS: ACUVAIL 1 DROPS LEFT EYE ×3 (00:39→12:30)
[2024-06-03 03:53] VITALS: BP 129/63
[2024-06-03 06:00] VITALS: BMI 21.6
[2024-06-03 07:30] LABS: ALT (SGPT) 12 U/L (0-50); AST (SGOT) 25 U/L (17-59); Albumin 3.1 g/dl (3.5-5.0); Alkaline Phosphatase 89 U/L (38-126); Blood Urea Nitrogen 12 mg/dl (9-20); Calcium 7.7 mg/dl (8.4-10.2); Carbon Dioxide 36 mmol/L (22-30); Chloride 96 mmol/L (98-107); Estimated Creatinine Clearance 93 ml/min; Glucose 86 mg/dl (70-99); Potassium 3.6 mmol/L (3.5-5.1); Sodium 137 mmol/L (135-145); Total Bilirubin 0.2 mg/dl (0.2-1.3); Total Protein 5.4 g/dl (6.3-8.2); eGFR > 60.00
[2024-06-03] MEDS: VENTOLIN NEBULES 1.25 MG INH ×2 (07:41→11:27)
[2024-06-03 07:55] VITALS: BP 138/76
[2024-06-03 08:27] LABS: % Basophils 0.3 % (0-2); % Eosinophils 3.3 % (0-6); % Immature Granulocytes 0.7 % (0-0.5); % Monocytes 9.1 % (1.7-9.3); % Neutrophils 72.6 % (42.2-75.2); Absolute Eosinophils 0.1 10^3/uL (0-0.7); Absolute Lymphocytes 0.4 10^3/uL (1.2-3.4); Absolute Monocytes 0.3 10^3/uL (0.1-0.6); Absolute Neutrophils 2.2 10^3/uL (1.4-6.5); Hematocrit 35.6 % (39.0-52.0); Mean Corp Hgb Conc. 28.1 g/dL (33.0-37.0); Mean Corpuscular Hgb 23.9 pg (27.0-31.0); Mean Platelet Volume 9.9 fL (7.4-10.4); Nucleated Red Blood Cells % 0 % (-); Platelet Count 141 10^3/uL (130-400); Red Blood Cell Count 4.19 10^6/uL (4.70-6.10); Red Cell Dist. Width 21.8 % (11.5-14.5); White Blood Cell Count 3.1 10^3/uL (4.8-10.8)
--- NOTE | 2024-06-03 08:51 | W.PN.PUL3 ---
Today's Communication / Plan
-
Tamiflu
Observe off steroids
Observe off antibiotics
DC back to intermediate on supplemental O2 at 3L/mn, titrating O2 to keep SpO2 88-95%
Mucus clearing devices
DC back to intermediate with Breyna 160mcg 2 puffs BID, rinsing mouth after use, and prn DuoNebs q6hr for SOB/wheezing/assistance with expectoration of phlegm
Pt likely being discharged back to his [place] today at [facility]; pulmonary service will continue to follow along while he remains hospitalized
Assessment
-
73-year-old male with underlying COPD, bronchiectasis, CAD, PAD, atrial fibrillation, gait dysfunction who presented with cough and increased shortness of breath in addition to hypoxemia-pulmonary consulted for shortness of breath 05/31/2024.
Impression:
Influenza A
COPD/severe centrilobular emphysema with acute exacerbation
RLL focal bronchiectasis with mucous plugging
Acute respiratory failure with hypoxia due to above
Abdominal pain
Leukopenia
Thpjrk-dhziitznwz-ljgtzeazhz 9.6
Mild hyperglycemia
Conditions present prior to admission:
COPD.
Bronchiectasis.
CAD.
CVA.
PAD.
AAA.
Chronic atrial fibrillation.
PPM.
Right hemiparesis.
Chronic gait dysfunction.
Rheumatoid arthritis.
GERD.
Hypertension.
Gout.
AAA repair.
BPH.
Anxiety.
Dementia.
Plan
CT chest personally reviewed and reveals severe advanced emphysematous changes as well as some bronchiectasis (mainly in RLL) with mucous plugging
Supplemental oxygen as needed-previously on 5 L, was on room air as of 06/02/2024 and saturating well at 96%, and now on 3L/min
Titrate O2 flow rate to SpO2 88-95%
Aspiration precautions
Speech therapy evaluation ongoing-correspondence reviewed-continue level 6-soft/bite sized and thin liquids
Incentive spirometry encouraged q1hr while awake
Nebulized albuterol QID while hospitalized
Mucus clearing devices with Acapella + flutter valve
Considering vest therapy if unable to produce or mobilize secretions
Observe off steroids
Given he has a wet sounding cough, would send home on Symbicort/Breyna 160mcg 2 puffs BID, rinsing mouth after use --> if inspiratory technique is poor then would use formoterol + budesonide BID
Cultures reviewed
Unable to produce sputum
Influenza A positive
Isolation/ droplet precautions
Tamiflu per protocol x 5 days
Trend WBC
Continue to observe off antibiotics
Monitor hemoglobin.
Transfuse if needed to keep Hb>7g/dL
Monitor blood sugar with goal BG>100 and <180
Insulin supplementation as needed
DVT prophylaxis-On Lovenox
GI prophylaxis-on pantoprazole (home med)
Early mobilization/physical therapy.
At time of discharge, discharge home on maintenance inhaler with Symbicort/Breyna 160mcg 2 puffs BID with prn DuoNebs q6hr SOB/wheezing
Patient is likely being discharged back to intermediate at [facility]. Pulmonary service will continue to follow along while he remains hospitalized.
Diagnostic data:
CT chest abdomen and pelvis 05/30/2024-no evidence for pulm embolism, left upper lobe pulmonary nodule measuring 6.8 mm and 6 mm, advanced emphysematous changes,, mucous plugging and bronchiectasis noted, cholelithiasis, lower pole calculus
measuring 7 mm in the left kidney
Total time spent today was 39 minutes for this encounter. Time includes reviewing laboratory test/imaging results, reviewing pertinent medical records, obtaining and reviewing medical history, performing an appropriate exam, ordering medications,
tests and procedures. Time also includes documentation of this encounter, coordinating patient care and communicating with other healthcare professionals. Total time does not include separately billed tests performed on this date of service.
Subjective Data
-
Date of Service:
Date of Service: June 03, 2024
Chief Complaint: Pulmonary Follow Up and Dyspnea Follow Up
Subjective:
Patient seen and evaluated today at bedside. He is sleeping in no acute distress and easily arousable to voice and following all commands. He has a wet sounding cough at times. He does not endorse a bothersome cough and also denies shortness of
breath at rest. Currently on 3 L/min saturating 96%. No acute events reported from overnight. Afebrile overnight.
Review of Systems
General: Other (Negative unless mentioned above)
Objective Data
Data Reviewed
Vital Signs / I&O / Oxygen:
Vital Signs
Temp Pulse Resp BP Pulse Ox
97.5 F 77 20 138/76 100
06/03/24 07:55 06/03/24 07:55 06/03/24 07:55 06/03/24 07:55 06/03/24 07:55
Intake and Output
06/02/24 06/03/24 06/04/24
06:59 06:59 06:59
Intake Total 1120 / 1120 390 / 390
Output Total 125 / 125
Balance 1120 / 1120 390 / 390 -125 / -125
SaO2 100
Nasal Cannula flow liters per 3
minute
Physical Exam
General: Respiratory Distress (n) and Comfortable
HEENT: Normocephalic and Anicteric
Cardiovascular: S1-S2, Rub (n) and Peripheral Edema (negative)
Respiratory: Wheeze (negative), Crackles ([place] bilaterally predominately during expiration), Rhonchi (negative), Non-Labored Respirations, Accessory Resp Muscle Use (n) and Stridor (n)
GI: Soft, Non Distended, Non Tender and Normal Bowel Sounds
Neurology: Awake, Alert and Tremors (negative)
Skin: Warm, Dry, Cyanosis (n), Jaundice (n) and Rash (n)
Labs/Micro/Reports
Lab Data
06/03/24 06:23
06/03/24 06:23
[2024-06-03 09:04] LABS: Normal RBC Morphology No
[2024-06-03 09:05] LABS: Anisocytosis 1+; Hypochromasia 1+; Microcytosis 1+; Ovalocytes 1+
[2024-06-03] MEDS: CYMBALTA DELAYED RELEASE 30 MG PO (09:17)
[2024-06-03] MEDS: MUCINEX 1200 MG PO (09:18)
[2024-06-03] MEDS: PROTONIX 40 MG PO (09:18)
[2024-06-03] MEDS: COREG 6.25 MG PO (09:19)
[2024-06-03] MEDS: CYMBALTA DELAYED RELEASE 60 MG PO (09:19)
[2024-06-03] MEDS: ASPIR LOW (ENTERIC COATED) 81 MG PO (09:19)
[2024-06-03] MEDS: SENOKOT 8.6 MG PO (09:19)
[2024-06-03] MEDS: PLAQUENIL 400 MG PO (09:19)
[2024-06-03] MEDS: TEGRETOL CHEWABLE 100 MG PO (09:19)
[2024-06-03] MEDS: FEOSOL 325 MG PO (09:19)
[2024-06-03] MEDS: TAMIFLU 75 MG PO (09:20)
[2024-06-03] MEDS: PLAVIX 75 MG PO (09:20)
[2024-06-03 11:30] VITALS: BP 131/78
--- NOTE | 2024-06-03 11:38 | W.PN.HOSP.TC ---
Addendum entered and electronically signed by Jose Manuel Hylton MD 06/03/24 13:22:
Updated daughter over the phone in complete details. Answered all her questions to her satisfaction. Daughter agreed and verbalized understanding for discharge today.
Discussed with pulmonary-plan to start LABA ICS and DuoNeb as needed
More than 30 minutes spent in discharge including
Final examination of the patient
Summarizing hospital stay
Instructions for continuing care to all relevant caregivers
Preparation of discharge records, prescriptions, and referral forms
Total time spent (in minutes): 55
Original Note:
Today's Communication/Plan
-
Return back to [facility]
Tamiflu
started inhaler
Assessment / Plan
Assessment / Plan
A/P: Patient is a 73y M with PMH significant for ASCVD, HTN and R hemiparesis s/p CVA who presents to ED from [place] for evaluation of cough and hypoxemia.
Sepsis 2/2 Influenza A Infection-poa
Leukopenia 2/2 sepsis
Acute Hypoxemic Respiratory failure secondary to the above downtrending oxygenation 3 L
Advanced emphysema with bronchiectasia w/mucus plugging.
- Began Tamiflu therapy. Complete 5d course
- Albuterol to nebulizing treatment. Mucus clearing therapy. Flutter valve.
- Follow proper precautions.
- Monitor for clinical improvement.
- speech eval. soft/bite sized w/thin liquid
- O2 supplementation as needed and wean as able.
- Pulm eval with emphysema/mucus plugging. Monitor off steroids. Discussed with pulmonary with plan to start LABA/ICS. On discharge
Abdominal Pain -resolved.
- CT done in the ED with no acute abnormality.
- AAA Endograft normal appearing.
- Two small L sided lung nodules noted which will require further follow-up.
- Continue bowel regimen.
- Follow for any new / worsening symptoms.
ASCVD
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
- Continue current CV med regimen including DAPT, statin, etc.
- Follow for any new complaints.
- Patient notes that he does not ambulate at baseline.
Benign Hypertension
-cont coreg
Chronic Atrial Fibrillation
- Not on chronic OAC - likely secondary to anemia / bleeding. Cont coreg.
Chronic Iron Deficiency Anemia
- Hgb improved from recent value in the 7s.
- Continue iron supplementation.
- Follow H&H for any changes.
- Hgb stable
Rheumatoid Arthritis
- Stable. Continue Plaquenil.
Senile Dementia
Mood Disorder
Anxiety / Depression
- Stable. Continue current med regimen including carbamazepine, mirtazapine, etc.
BPH
- Bladder scan protocol.
- Continue tamsulosin.
DVT Prophylaxis: Lovenox
Code Status: Full
Anticipated Discharge: Today
Subjective/Interval History
-
Date of Service: June 03, 2024
Remains on oxygen
remains afebrile
states cough has improved and significant decrease frequency
Objective Data
-
Labs:
Laboratory Results
06/03/24
06:23
WBC 3.1 L
Hgb 10.0 L
Hct 35.6 L
Plt Count 141
Sodium 137
Potassium 3.6
Chloride 96 L
Carbon Dioxide 36 H
BUN 12
Creatinine 0.7
Glucose 86
Calcium 7.7 L
Total Bilirubin 0.2
AST 25
ALT 12
Alkaline Phosphatase 89
Vital Signs:
Vital Signs
Temp Pulse Resp BP Pulse Ox
97.5 F 78 16 138/76 94
06/03/24 07:55 06/03/24 11:29 06/03/24 11:29 06/03/24 09:19 06/03/24 11:29
I&O
06/02/24 06/03/24 06/04/24
06:59 06:59 06:59
Intake Total 1120 / 1120 390 / 390
Output Total 125 / 125
Balance 1120 / 1120 390 / 390 -125 / -125
Physical Exam
-
General: Well Developed, No Apparent Distress and Appears Chronically Ill
HEENT: Normocephalic, Atraumatic, Moist Mucous Membranes and Oxygen
Respiratory: Rhonchi
Cardiac: Regular Rhythm and S1/S2; Negative Murmur, Rub or Gallop
GI: Soft, Nontender, Nondistended and Normal Bowel Sounds; Negative Organomegaly
Rectal: Deferred by Provider
Musculoskeletal: No Clubbing, No Cyanosis, No Edema and Other (upper extremitis contractures )
Skin: Negative Rash
Neuro: Awake and Nonfocal/Grossly Intact
Psych: Calm
--- NOTE | 2024-06-03 12:08 | CM ---
Patient from [facility]. O2 3L. Droplet Precautions. PT/OT; Therapy not warranted.
Spoke with Mari, [facility]; they are able to accept the patient back today and are aware that he is in isolation for the flu. The ph for nurse report [phone], fax [phone].
Met with patient who agrees to d/c today back to [facility]. IMM completed- patient unable to sign name due to hand contractures however he was able to make a franklyn on the paper. Left phone message for daughter Deb that patient was returning
to SNF today.
Plan [facility] today by ambulance.
--- NOTE | 2024-06-03 12:11 | W.DCSUMMARY ---
Discharge Summary
Discharge Data
Date of Admission: 05/30/24
Date of Discharge: 06/03/24
-
Pending Results: No
Hospital Course
72-year-old male past medical history of tobacco abuse in the past, COPD, emphysema, bilateral upper extremity contractures, stroke, hypertension, rheumatoid arthritis, dementia, mood disorder, BPH, atrial fibrillation, presented from [facility]
for hypoxemia. Patient was found to have influenza A. Patient underwent imaging study which showed bronchiectasis with mucous plugging. Patient was started on bronchodilators. Pulmonary was consulted. CT with severe pulmonary emphysema and
pulmonary nodules. It was discussed with patient daughter over the phone that patient needs to follow-up with sql tech for emphysema and pulmonary nodules. Patient daughter was informed of the pulmonary nodules noted on the CAT scan and need
to follow-up with sql tech to make sure does not progress to any malignant lesion as history of tobacco abuse in the past. Patient oxygenation improved. Patient was treated with Tamiflu. Patient was eval by speech and swallow evaluation and
recommended soft bite-size diet. Pulmonary recommended patient to be started on a LABA ICS and DuoNeb as needed. Patient daughter was updated throughout hospitalization.
Discharge Plan
-
Patient Disposition: Group Home/SNF
Discharge Diagnosis/Procedures: Sepsis 2/2 Influenza A Infection
Leukopenia 2/2 sepsis
Acute Hypoxemic Respiratory failure
Advanced COPD/ emphysema with bronchiectasis w/mucus plugging.
Abdomen pain
Condition: Fair
Diet: Other diet
Additional Diets: SOFT BITE SIZED SOLIDS and continue with THIN LIQUIDS and meds with water as tolerated. RN to check for oral clearance with meds,
- Aspiration precautions: HOB upright for all PO intake; assistance with meals; small bites/sips; slow intake rate; alternate bites/sips.
- BUSINESS ECONOMIST to f/u re: diet tolerance,
Activity: As tolerated
Driving Restrictions: No driving
Other Services: ST
Referrals:
Phillip Estrella MD [Family Provider] - in less than 1 week
David Gutierrez MD [Active] - in one to two months (Follow-up for pulmonary nodules)
Prescriptions:
New
oseltamivir 75 mg Capsule
75 mg PO BID Qty: 3 0RF
budesonide-formoterol [Symbicort] 160-4.5 mcg/actuation HFA aerosol inhaler
2 puff inhalation Q12H Qty: 10.2 0RF
ipratropium-albuterol 0.5 mg-3 mg(2.5 mg base)/3 mL solution for nebulization
3 ml inhalation Q4H PRN (Reason: shortness of breath) Qty: 180 0RF
Continued
aspirin 81 MG tablet,delayed release (DR/EC)
81 mg PO DAILY
bisacodyl [OneLAX Bisacodyl] 10 MG suppository
10 mg ME DAILYPRN PRN (Reason: IF MOM INEFECTIVE IN 24H)
clopidogrel 75 MG tablet
75 mg PO DAILY
mirtazapine 7.5 MG tablet
7.5 mg PO HS
atorvastatin 40 MG tablet
40 mg PO QPM
sennosides [senna] 1 TABLET tablet
1 tab PO BID
acetaminophen 325 MG tablet
650 mg PO Q4HPRN PRN (Reason: MILD PAIN/FEVER)
polyethylene glycol 3350 17 GRAMS powder in packet
17 grams PO HS
magnesium hydroxide 30 ML suspension
30 ml PO [id number] PRN (Reason: NO BM IN 3 DAYS)
tamsulosin 0.4 MG capsule
0.4 mg PO HS
pantoprazole 40 MG tablet,delayed release (DR/EC)
40 mg PO DAILY
Enema 135 ML enema
118 ml RC DAILYPRN PRN (Reason: IF SUPP INEFFECTIVE AFTR 24H)
nitroglycerin 0.4 MG tablet, sublingual
0.4 mg sublingual [id number] PRN (Reason: CHEST PAIN)
hydroxychloroquine 200 MG tablet
400 mg PO DAILY
duloxetine 60 MG capsule,delayed release(DR/EC)
60 mg PO DAILY
carvedilol 6.25 mg Tablet
6.25 mg PO BID
amlodipine 5 mg Tablet
5 mg PO DAILY
guaifenesin 100 mg/5 mL Liquid
200 mg PO Q4HPRN PRN (Reason: cough)
cyanocobalamin (vitamin B-12) 500 mcg Tablet
500 mcg PO DAILY
ferrous sulfate 325 mg (65 mg iron) Tablet
325 mg PO DAILY
carbamazepine 100 mg Tablet,Chewable
100 mg PO BID
alum-mag hydroxide-simeth [[place]] 200-200-20 mg/5 mL Suspension
15 ml PO Q8HPRN PRN (Reason: acid indigestion)
ketorolac 0.4 % Drops
1 drp LEFT EYE Q6H
cholecalciferol (vitamin D3) 1,250 mcg (50,000 unit) Tablet
1,250 mcg PO MO
Biofreeze (menthol) 4 % Gel
1 applic TOPICAL BID
duloxetine 30 mg Capsule, Delayed Rel Sprinkle
30 mg PO DAILY
Eucerin Advanced Repair Cream
1 applic TOPICAL BID
Discontinued
ondansetron HCl 4 MG tablet
4 mg PO Q6HPRN PRN (Reason: nausea)
Discharge Orders:
Discharge Patient (As Directed); Ordered 06/03/24
Ordered By: Jose Manuel Hylton
Discharge Date and Time
Print Language: OCCITAN
--- NOTE | 2024-06-03 13:00 | PTCARENOTE ---
Report called to nurse at [facility]. Facility aware that he has a 1345 roller picker via ambulance.
--- NOTE | 2024-06-03 15:34 | PTCARENOTE ---
Patient left via stretcher with ambulance crew. IVs and tele removed. Vital signs stable. Denies complaints.
== END 2024-06-03 14:33 | DRG 871 ==
LOC: 4 EAST ACU 21:28
PROVIDERS: Physician Assistant; Physician Assistant Medical; ADMITTING PHYSICIAN Hospitalist; ATTENDING PHYSICIAN Hospitalist; CONSULT PHYSICIAN Internal Medicine Critical Care Medicine; EMERGENCY PHYSICIAN Emergency Medicine; FAMILY PHYSICIAN Internal Medicine
DX: A41.89 Other specified sepsis (principal); J96.01 Acute respiratory failure with hypoxia; I48.20 Chronic atrial fibrillation, unspecified; I69.351 Hemiplegia and hemiparesis following cerebral infarction affecting right dominant side; F03.93 Unspecified dementia, unspecified severity, with mood disturbance; F03.94 Unspecified dementia, unspecified severity, with anxiety; J44.1 Chronic obstructive pulmonary disease with (acute) exacerbation; I25.10 Atherosclerotic heart disease of native coronary artery without angina pectoris; M06.9 Rheumatoid arthritis, unspecified; K21.9 Gastro-esophageal reflux disease without esophagitis; M10.9 Gout, unspecified; D50.9 Iron deficiency anemia, unspecified; D72.819 Decreased white blood cell count, unspecified; J10.1 Influenza due to other identified influenza virus with other respiratory manifestations; J47.9 Bronchiectasis, uncomplicated; N40.0 Benign prostatic hyperplasia without lower urinary tract symptoms; J43.2 Centrilobular emphysema; R73.9 Hyperglycemia, unspecified; E78.00 Pure hypercholesterolemia, unspecified; E53.8 Deficiency of other specified B group vitamins; I11.0 Hypertensive heart disease with heart failure; I50.9 Heart failure, unspecified; K59.00 Constipation, unspecified; Z11.52 Encounter for screening for COVID-19; Z87.891 Personal history of nicotine dependence; Z95.0 Presence of cardiac pacemaker; Z79.82 Long term (current) use of aspirin; Z79.02 Long term (current) use of antithrombotics/antiplatelets; Z79.899 Other long term (current) drug therapy; Z86.79 Personal history of other diseases of the circulatory system
CPT/HCPCS: 51701; 71275; 74177; 80048; 80053; 81003; 83605; 83690; 85025; 85027; 87502; 87811; 92526; 92610; 94640; 96374; 99285; 99406; Q9967

== ENCOUNTER → 2024-07-16 16:47 | Outpatient (REF) | payer MEDICARE, OTHER, SELFPAY | LOC: RAD 16:47 | PROVIDERS: ATTENDING PHYSICIAN Surgery Vascular Surgery; FAMILY PHYSICIAN Internal Medicine | DX: I71.43 Infrarenal abdominal aortic aneurysm, without rupture (principal) | CPT/HCPCS: 74174; Q9967 ==